=== PATIENT | female | born 1950 ===

== ENCOUNTER 2023-02-10 10:45 | Inpatient (IN) | payer OTHER ==
[~2023-02-10] VITALS: Ht 160 cm; Wt 67.6 kg
[2023-02-11] MEDS ORDERED: FENOFIB PO (14:26)
[2023-02-11] MEDS ORDERED: JANUVIA25 MG PO (14:27)
[2023-02-11] MEDS ORDERED: AMLODIPINE-OLM1 EACH PO (14:27)
[2023-02-11] MEDS ORDERED: CRESTOR10 MG PO (14:28)
[2023-02-16] MEDS ORDERED: NORVASC2.5 MG (14:47)
[2023-02-16] MEDS ORDERED: FENOFIBRATE48 MG (14:47)
[2023-02-19] MEDS ORDERED: HYOSCYAMINE0.125 M1 SL (11:00)
[2023-02-19] MEDS ORDERED: GABAPENTIN300 MG PO (11:01)
[2023-02-19] MEDS ORDERED: POLY119PG PO (11:01)
[2023-02-19] MEDS ORDERED: ACETAMINOPHEN500 M2 PO (11:02)
[2023-02-19] MEDS ORDERED: INTESTINEX680 M1 PO (11:02)
== END 2023-02-19 15:15 | disposition home or self-care (01) | DRG 330 ==
LOC: SURH 02-16 06:16 → O/R 02-16 06:16 → SURH 02-16 10:30
PROVIDERS: ADMIT Surgery; ATTEND Surgery
PROC: 0DJD8ZZ Inspection of Lower Intestinal Tract, Via Natural or Artificial Opening Endoscopic (ICD-10-PCS; 2023-02-16)
PROC: 0DTN4ZZ Resection of Sigmoid Colon, Percutaneous Endoscopic Approach (ICD-10-PCS; principal; 2023-02-16 10:30)
DX: K57.32 Diverticulitis of large intestine without perforation or abscess without bleeding (principal); K55.1 Chronic vascular disorders of intestine; K59.09 Other constipation